=== PATIENT | male | born 1960 | race Caucasian/White ===

== ENCOUNTER 2023-02-13 10:47 | Outpatient (AMB) | payer SELFPAY ==
--- NOTE | 2023-02-13 10:50 | A.OFFVIS_ITS ---
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 Previous patient of Dr. Fountain. He reports mild intermittent discomfort in his left knee. He denies any fevers or chills per continue with his home exercise program. Allergies Penicillins Allergy (Intermediate, Verified 02/13/23 11:13) Nausea and Vomiting Medication List - Last Reconciled 02/13/23 by Naveen Fountain MD omeprazole 20 mg PO DAILY Physical Exam Const Other: Well-nourished well-developed very friendly male awake alert and oriented x3 in no acute distress Extrem Other: Bilateral lower extremity examination shows good capillary refill, no skin lesions noted, normal sensation light touch Left knee examination shows that the surgical incision with pulse, no erythema, full active extension and flexion 120 degrees, his patella tracks well Results Reviewed Results Reviewed: X-rays of the patient's left knee show a total knee arthroplasty in good position with no signs of loosening, no acute bony abnormalities Assessment & Plan Assessment & Plan (1) Left knee pain: Code(s): M25.562 - Pain in left knee Plan Mr. Figueredo continues to do very well after undergoing left total knee replacement surgery on 02/08/2022. He will continue with his home exercise program. He does know to take antibiotics before any dental work. He will contact me prior to his annual follow-up appointment should any questions or concerns arise. I spent 20 minutes in reviewing the patient's records and imaging studies, seeing the patient and documenting in the medical record. Orders: Orders XR knee LT 3V Today M25.562 - Pain in left knee Coding Level of Care Code Est Pt Level 2 (62553) Diagnoses Left knee pain M25.562
== END 2023-02-13 11:37 | disposition home or self-care (01) ==
PROVIDERS: Visit Provider Orthopaedic Surgery
DX: M25.562 Pain in left knee (principal)
CPT/HCPCS: 99212

== ENCOUNTER 2023-02-13 14:46 | Outpatient (REF) | payer OTHER, SELFPAY ==
--- NOTE | ~2023-02-13 | XR_ITS ---
EXAMINATION: XR KNEE, LEFT CLINICAL INFORMATION: Pain COMPARISON: None available. TECHNIQUE: Three views of the left knee. FINDINGS: Status post left knee arthroplasty. Orthopedic hardware is grossly intact. Joint space alignment are otherwise maintained. No large knee joint effusion. Soft tissues are unremarkable. XR/XR knee LT 3V IMPRESSION: Status post left knee arthroplasty. Orthopedic hardware is grossly intact.
== END 2023-02-13 14:47 | disposition home or self-care (01) ==
LOC: HO.HOSX 14:46
PROVIDERS: Visit Provider Orthopaedic Surgery
DX: M25.562 Pain in left knee (principal)
CPT/HCPCS: 73562; 99212